=== PATIENT | male | born 1970 | race Caucasian/White ===

== ENCOUNTER → 2019-04-29 | Day surgery (SDC) | payer OTHER ==
[~2019-04-29] MED LIST: Lactated Ringers 1,000 ML IV SCH; Propofol 200 MG/20 ML SDV IV ONE
--- NOTE | 2019-04-29 16:23 | OR ---
DATE OF OPERATION: 04/29/2019 PREOPERATIVE DIAGNOSIS: FAMILY HISTORY OF COLON CARCINOMA. POSTOPERATIVE DIAGNOSIS: FAMILY HISTORY OF COLON CARCINOMA. SURGEON: Keven Dominguez MD PROCEDURE: DIAGNOSTIC COLONOSCOPY WITH FORCEPS POLYP REMOVAL X5. ANESTHESIA: MAC. COMPLICATIONS: None. SPECIMEN: Sessile polyps x5, all less than 0.5 cm. FINDINGS: 1. Full-length colonoscopy. 2. Cohen diverticulosis, mild to moderate. 3. Sessile polyps x5, all left colon. RECOMMENDATIONS: Followup colonoscopy in 3 years. INDICATIONS: The patient has a brother with a history of colon cancer. He is being seen for a surveillance endoscopy as he has not had 1 in over 10 years. DESCRIPTION OF PROCEDURE: The patient was prepped and draped, placed in the left lateral decubitus position. A lubricated Olympus colonoscope was inserted and with ease advanced to the cecum. The patient had a poor prep. Many areas had to be irrigated. Some could not be seen very well. Certainly, smaller lesions may have been missed. The cecum, ascending, and transverse colon appeared benign as did the descending area. The patient does have cohen diverticular disease all the way over to the right colon, mild to moderate in severity in certain areas. No inflammatory changes were seen. In the mid sigmoid colon and the distal, the patient had 2 small flat sessile polyps, each about 3 mm, each removed with forceps without problem. The rest of the sigmoid and rectosigmoid area looked benign. In the proximal rectal vault, the patient had a small flat sessile polyp, also removed with a forceps. Upon retroflexion in the rectum, the perianal region had 2 small flat sessile polyps as well, both removed with forceps with retroflexion without any complication. The air was then suctioned, the scope removed without complication. ALEJANDRA/SILVIA /[id number]
== END ==
LOC: CC.SDS 08:00
PROVIDERS: ATTEND Family Medicine
DX: Z12.11 Encounter for screening for malignant neoplasm of colon (principal); K57.30 Diverticulosis of large intestine without perforation or abscess without bleeding; K63.5 Polyp of colon; K62.1 Rectal polyp; E11.9 Type 2 diabetes mellitus without complications; I10 Essential (primary) hypertension; E66.9 Obesity, unspecified; Z68.35 Body mass index [BMI] 35.0-35.9, adult; Z80.0 Family history of malignant neoplasm of digestive organs; Z79.4 Long term (current) use of insulin; Z90.49 Acquired absence of other specified parts of digestive tract; Z79.899 Other long term (current) drug therapy
CPT/HCPCS: 45380; J2704; J7120